=== PATIENT | male | born 1955 | race Caucasian/White ===

== ENCOUNTER 2017-04-20 09:46 | Emergency (ER) | payer OTHER ==
[2017-04-20 09:48] VITALS: BP 139/60
[2017-04-20 10:21] LABS: PLATELET COUNT 378 x10^3mcL (130-400)
[2017-04-20 10:26] LABS: CALCIUM 8.7 mg/dL (8.5-10.1); CARBON DIOXIDE 30.4 mmol/L (21-32); CHLORIDE SERUM 100 mmol/L (98-107); CREATININE SERUM 0.8 mg/dL (0.7-1.3); GFR1 > 60 mL/min; GLUCOSE SERUM 100 mg/dL (74-106); POTASSIUM SERUM 4.1 mmol/L (3.5-5.1); SODIUM SERUM 137 mmol/L (136-145)
[2017-04-20 10:30] LABS: ALBUMIN 3.5 g/dL (3.4-5.0); ALKALINE PHOSPHATASE 88 U/L (46-116); ALT/SGPT 15 U/L (16-63); AST/SGOT 10 U/L (15-37); BILIRUBIN TOTAL 0.3 mg/dL (0.20-1.00)
[2017-04-20 11:08] LABS: RED CELL DISTRIBUTION WIDTH 18.7 % (11.5-14.5)
[2017-04-20 11:39] LABS: MONOCYTE 7 % (0-7); SEGMENTED NEUTROPHILS 82 % (37-75)
[2017-04-20 11:44] LABS: ovalocyte/elliptocyte 2+
[2017-04-20 12:09] LABS: rbc morphology (normal/abnorm) ABNORMAL (NORMAL)
== END 2017-04-20 11:44 | disposition home or self-care (01) ==
LOC: ED 09:46
DX: D50.9 Iron deficiency anemia, unspecified (principal)
CPT/HCPCS: 36415

== ENCOUNTER 2018-09-14 09:52 | Emergency (ER) | payer OTHER ==
[~2018-09-14] VITALS: Ht 160 cm; Wt 59.9 kg
[2018-09-14 09:57] VITALS: Ht 160 cm; Wt 59.9 kg
[2018-09-14 11:25] VITALS: BP 136/67
== END 2018-09-14 11:37 | disposition home or self-care (01) ==
LOC: ED 09:52
DX: S20.221A Contusion of right back wall of thorax, initial encounter (principal); I10 Essential (primary) hypertension; W06.XXXA Fall from bed, initial encounter; Y93.89 Activity, other specified; Y92.009 Unspecified place in unspecified non-institutional (private) residence as the place of occurrence of the external cause; Y99.8 Other external cause status
CPT/HCPCS: 72072